=== PATIENT | female | born 1980 | race Caucasian/White ===

== ENCOUNTER 2020-10-13 19:21 | Emergency (ER) | payer SELFPAY ==
[~2020-10-13] VITALS: Ht 160 cm; Wt 77.0 kg
[~2020-10-13 19:21] MED LIST: HYDR-3164 PO; PENI500T PO; TRIA15CR TP
[2020-10-13 19:28] VITALS: BP 132/78
[2020-10-13] MEDS ORDERED: NAPROXEN 500 MG TABLET PO ONE (19:33)
[2020-10-13] MEDS ORDERED: AMOXICILLIN/K CLAV 875/125MG TABLET. PO ONE (19:45)
[2020-10-13] MEDS ORDERED: HYDROcodone/APAP 5/325MG 1 TAB TABLET PO ONE (19:45)
--- NOTE | 2020-10-13 19:54 | RAD ---
Study: XR FOREARM_LEFT 2 VIEWS Indication: Dog bite. Comparison: None. Findings: Laceration injury seen at the radial aspect of the distal forearm. No retained radiopaque foreign bod y. No acute fracture or malalignment. Impression: No acute osseous abnormality seen in the setting of laceration injury centered at the radial aspect o f the distal forearm. No retained radiopaque foreign body. Electronically signed by: IVAN BRADSHAW MD (10/13/2020 7:52 PM) [facility]
[2020-10-13] MEDS ORDERED: AMOX875T PO (19:56)
[2020-10-13] MEDS ORDERED: HYDR-2759 PO (19:56)
--- NOTE | 2020-10-13 19:56 | PHYS DOC ---
Past Medical History Past Medical History: No Pertinent History Past Surgical History: No Surgical History Smoking Status: Current Every Day Smoker Alcohol Use: Occasionally Drug Use: None General Adult EDM: Chief Complaint: ANIMAL BITE HPI: HPI: Patient is a 40 year old male patient presented to the ED today with dog bites to the left forearm. Patient is right-handed. Review of Systems: Review of Systems: Constitutional: Denies fever or chills. [] Musculoskeletal: Denies back pain or joint pain. [] Integument: Reports dog bite to the left forearm Neurologic: Denies headache, focal weakness or sensory changes. [] Psychiatric: Denies depression or anxiety. [] Heart Score: C/O Chest Pain: N/A Risk Factors: Risk Factors: DM, Current or recent (<one month) smoker, HTN, HLP, family history of CAD, obesity. Risk Scores: Score 0 - 3: 2.5% MACE over next 6 weeks - Discharge Home Score 4 - 6: 20.3% MACE over next 6 weeks - Admit for Clinical Observation Score 7 - 10: 72.7% MACE over next 6 weeks - Early Invasive Strategies Current Medications: Current Medications Medications (Trade) Dose Ordered Sig/Jarret Start Time Stop Time Status Last Admin Dose Admin Acetaminophen/ Hydrocodone Bitart (Lortab 5/325) 2 tab 1X ONCE 10/13/20 19:45 10/13/20 19:46 DC 10/13/20 19:46 2 TAB Amoxicillin/ Clavulanate Potassium (Augmentin 875/ 125mg) 1 tab 1X ONCE 10/13/20 19:45 10/13/20 19:46 DC 10/13/20 19:47 1 TAB Naproxen (Naprosyn) 500 mg 1X ONCE 10/13/20 19:33 10/13/20 19:41 DC 10/13/20 19:47 500 MG Allergies: Allergies: Allergies Coded Allergies Type Severity Reaction Last Updated Verified No Known Drug Allergies 07/01/13 No Physical Exam: PE: Constitutional: Well developed, well nourished, no acute distress, non-toxic appearance. [] Skin: Warm, dry, left forearm distal and with 4 puncture wounds on the ventral as well as dorsal aspect consistent with dog bites. Back: No tenderness, no CVA tenderness. [] Extremities: No tenderness, no cyanosis, no clubbing, ROM intact, no edema. [] Neurologic: Alert and oriented X 3, normal motor function, normal sensory function, no focal deficits noted. [] Psychologic: Affect normal, judgement normal, mood normal. [] Current Patient Data: Vital Signs: Vital Signs Date Time Temp Pulse Resp B/P (MAP) Pulse Ox O2 Delivery O2 Flow Rate FiO2 10/13/20 19:28 86 12 132/78 (96) 96 Room Air EKG: EKG: [] Radiology/Procedures: Radiology/Procedures: []REASON: dog bite PROCEDURE: FOREARM LEFT Study: XR FOREARM_LEFT 2 VIEWS Indication: Dog bite. Comparison: None. Findings: Laceration injury seen at the radial aspect of the distal forearm. No retained radiopaque foreign body. No acute fracture or malalignment. Impression: No acute osseous abnormality seen in the setting of laceration injury centered at the radial aspect of the distal forearm. No retained radiopaque foreign body. Electronically signed by: IVAN BRADSHAW MD (10/13/2020 7:52 PM) [facility] DICTATED and SIGNED BY: IVAN BRADSHAW MD DATE: 10/13/204041XWH1 0 Course & Med Decision Making: Course & Med Decision Making Pertinent Labs and Imaging studies reviewed. (See chart for details) This is a 40-year-old female patient presenting to the ED today with dog bites to left forearm. Left forearm x-rays interpreted by radiologist are negative for any acute findings. Dog bites were cleaned, covered nonstick dressing. Discharged in Augmentin. Tetanus updated. Wound care instructions and return precautions provided first dose of Augmentin given in the ED. Mohini Disclaimer: Mohini Disclaimer: This electronic medical record was generated, in whole or in part, using a voice recognition dictation system. Departure Departure Impression: Primary Impression: Dog bite of left upper arm Qualified Codes: S41.152A - Open bite of left upper arm, initial encounter; W54.0XXA - Bitten by dog, initial encounter Disposition: HOME / SELF CARE / HOMELESS Condition: STABLE Referrals: NO PCP (PCP) Follow-up with your doctor in 1 to 2 weeks Patient Instructions: Animal Bite Additional Instructions: You were evaluated in the emergency room for dog bite to the left forearm. Continue to clean the areas with regular soap and water once or twice a day. We would like the areas left open to air if not draining if draining cover them. Apply Neosporin to the dog bites twice a day. Take the prescribed antibiotics until completed. Follow-up with your doctor in 1 week. Please return to the ED at any point wound condition worsens. Scripts Hydrocodone/Acetaminophen (Hydrocodone-Acetamin 5-325 mg) 1 Each Tablet 1 EACH PO Q6HRS, #10 TAB Prov: RONY SALAZAR [employer] 10/13/20 Amoxicillin (AMOXICILLIN) 875 Mg Tablet 1 TAB PO BID, #20 TAB Prov: RONY SALAZAR [employer] 10/13/20 RONY SALAZAR APRN October 13, 2020 19:56
== END 2020-10-13 20:20 | disposition home or self-care (01) ==
LOC: ER 19:21
DX: S51.852A Open bite of left forearm, initial encounter (principal); F17.200 Nicotine dependence, unspecified, uncomplicated; W54.0XXA Bitten by dog, initial encounter; Y93.89 Activity, other specified; Y92.89 Other specified places as the place of occurrence of the external cause; Y99.8 Other external cause status
CPT/HCPCS: 73090; 99284